=== PATIENT | male | born 2005 | race Caucasian/White ===

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

== ENCOUNTER 2024-04-16 08:26 | Emergency (ER) | payer MEDICAID ==
[~2024-04-16] VITALS: Ht 182.9 cm; Wt 72.7 kg
[2024-04-16 08:34] VITALS: BP 118/82; TEMP 98.1
[2024-04-16] MEDS ORDERED: NORCO 325 MG-51 TAB PO (09:24)
[2024-04-16] MEDS ORDERED: AMOXICILLIN 50500 MG PO (09:24)
[2024-04-16] MEDS ORDERED: Amoxicillin 500 MG CAP PO ONE (09:45)
[2024-04-16 09:50] VITALS: PULSE 68
== END 2024-04-16 09:50 | disposition home or self-care (01) ==
LOC: COL.ER 08:26
DX: K04.7 Periapical abscess without sinus (principal)